=== PATIENT | female | born 1935 ===

== ENCOUNTER 2018-10-30 14:21 | Inpatient (IN) | payer MEDICARE, OTHER ==
[2018-10-30] MEDS ORDERED: Sodium Chloride 0.9% 1,000 ML IV STA (15:18)
[2018-10-30 16:13] LABS: BASO # 0.1 K/uL (0.0-0.2); BASO % 0.3 % (0.0-2.0); EOS # 0.1 K/uL (0.0-0.7); EOS % 0.4 % (0.0-4.0); HEMOGLOBIN 12.6 g/dL (12.0-16.0); LYMPH # 1.3 K/uL (1.0-4.3); LYMPH % 8.9 % (20.0-40.0); MEAN CELL VOLUME 88.2 fl (81.0-99.0); MEAN CORPUSCULAR HEMOGLOBIN 28.6 pg (27.0-31.0); MEAN CORPUSCULAR HGB CONC 32.5 g/dL (33.0-37.0); MEAN PLATELET VOLUME 8.8 fl (7.2-11.7); MONO # 0.6 K/uL (0.0-0.8); MONO % 4.1 % (0.0-10.0); NEUT # 12.7 K/uL (1.8-7.0); NEUT % 86.3 % (50.0-75.0); PLATELET COUNT 336 K/uL (130-400); RED CELL DISTRIBUTION WIDTH 13.8 % (11.5-14.5); WHITE BLOOD COUNT 14.8 K/uL (4.8-10.8)
[2018-10-30 16:28] LABS: ALBUMIN 4.3 g/dL (3.5-5.0); BLOOD UREA NITROGEN 26 mg/dl (7-17); CALCIUM 9.9 mg/dL (8.4-10.2); GFR NON-AFRICAN AMERICAN > 60
[2018-10-30 16:29] LABS: ALB/GLOB RATIO 1.2 (1.0-2.1); ALT/SGPT 27 U/L (9-52); AST/SGOT 32 U/L (14-36); LIPASE 177 U/L (23-300)
[2018-10-30 16:32] LABS: PROTHROMBIN TIME 11.9 Seconds (9.8-13.1)
[2018-10-30] MEDS ORDERED: Iohexol 300 100 ML IJ ONE (16:32)
[2018-10-30] MEDS ORDERED: Sodium Chloride 0.9% 50 ML IV ONE (16:32)
[2018-10-30 16:44] LABS: B-TYPE NATRIURETIC PEPTIDE 38.9 pg/ml (0-900)
[2018-10-30 17:17] LABS: SQUAMOUS EPITHIAL 5 /hpf (0-5); URINE BACTERIA RARE (<OCC); URINE BILIRUBIN NEGATIVE (NEGATIVE); URINE BLOOD LARGE (NEGATIVE); URINE CLARITY CLOUDY (Clear); URINE COLOR YELLOW (YELLOW); URINE GLUCOSE (UA) 150 mg/dL (NEGATIVE); URINE LEUKOCYTE ESTERASE SMALL Leu/uL (Negative); URINE PROTEIN 30 mg/dL (NEGATIVE); URINE UROBILINOGEN 0.2-1.0 mg/dL (0.2-1.0)
--- NOTE | 2018-10-30 17:17 | RAD ---
Date of service: 10/30/2018 HISTORY: Shortness of breath COMPARISON: 06/24/2018 FINDINGS: LUNGS: No active pulmonary disease. PLEURA: No significant pleural effusion identified, no pneumothorax apparent. CARDIOVASCULAR: No atherosclerotic calcification present Normal. OSSEOUS STRUCTURES: No significant abnormalities. VISUALIZED UPPER ABDOMEN: Normal. OTHER FINDINGS: None. IMPRESSION: No active disease. No significant interval change compared to the prior examination(s).
--- NOTE | 2018-10-30 17:29 | CT ---
Date of service: 10/30/2018 PROCEDURE: CT Abdomen and Pelvis with contrast HISTORY: RUQ pain, vomiting, hx gallstones COMPARISON: And pelvis CT with contrast 06/24/2018. TECHNIQUE: Following the intravenous administration of iodinated contrast material, a CT examination of the abdomen and pelvis was performed from the domes of the diaphragms to the symphysis pubis with reformatted datasets provided in axial, sagittal and coronal planes. Oral contrast was not administered as per referring physician request.Contrast dose: Omnipaque 300, 80 cc Radiation dose: Total exam DLP = 269.71 mGy-cm. This CT exam was performed using one or more of the following dose reduction techniques: Automated exposure control, adjustment of the mA and/or kV according to patient size, and/or use of iterative reconstruction technique. FINDINGS: LOWER THORAX: Limited dependent atelectasis identified in the right lower lobe with cardiomegaly reiterated. No pleural or pericardial effusion. Small hiatal hernia again evident. LIVER: Unremarkable. No gross lesion or ductal dilatation. GALLBLADDER AND BILE DUCTS: Gallbladder is similar in distension is previously shown, moderate, but with mural enhancement. No pericholecystic fluid collection. Lucent calculi are suggest fatty gallstones near the neck. Cholecystitis is not completely excluded. Clinically correlate further. PANCREAS: Pancreatic atrophy reiterated with pancreas otherwise unremarkable once again. SPLEEN: Unremarkable. ADRENALS: Unremarkable. No mass. KIDNEYS AND URETERS: Prominent right extrarenal pelvis with a small lucency seen the midpole right kidney laterally, too small to characterize. No obstructive uropathy bilaterally or significant perinephric reactive change. Occasional right-sided cortical infarcts reiterated. Two small lucencies are reiterated at the left kidney too small to characterize as well. VASCULATURE: Nonaneurysmal abdominal aortic calcific atherosclerotic changes are identified. BOWEL: Unremarkable. No obstruction. No gross mural thickening. APPENDIX: Appendix not identified. No CT evidence of appendicitis. PERITONEUM: Unremarkable. No free fluid. No free air. LYMPH NODES: Unremarkable. No enlarged lymph nodes. BLADDER: Unremarkable. REPRODUCTIVE: Lucency may reflect fluid in the central endometrial cavity in the interval. BONES: No acute fracture. OTHER FINDINGS: None. IMPRESSION: 1. Mural enhancing without thickening or pericholecystic fluid is appreciated which is nonspecific combination but could reflect potential cholecystitis. Cholelithiasis is seen in the lumen near the neck. Clinically correlate further. No biliary tree dilatation appreciated throughout. 2. No obstructive uropathy bilaterally. Prominent right extrarenal pelvis reiterated as well as right renal lucencies too small to characterize and cortical infarcts. Two small lucencies are reiterated at the left kidney too small to characterize as well.
[2018-10-30] MEDS ORDERED: Piperacillin/Tazobact 4.5 GM in Sodium Chloride 0.9% 100 ML IVPB STA (17:31)
--- NOTE | 2018-10-30 18:23 | CP.PCM.CON ---
History of Present Illness - History of Present Illness History of Present Illness: SURGERY CONSULT NOTE FOR DR. TROTTER Reason: r/o cholecystitis 83F presented to hospital after being sent to ED by PMD for symptoms of abdominal pain, nausea, vomiting and diarrhea. Patient currently denies abdominal pain, but states she does have right side rib pain. She states she is comfortable currently. Denies nausea, vomiting, fevers currently. Patient was recently admitted to [facility] for fall, and was diagnosed with right sided rib fractures on rib x-ray. PMH: DM, HTN, HLD, Dementia PSH: Appendectomy Social: Denies tobacco, alcohol, illicit drug Allergies: NKDA Past Patient History - Infectious Disease Hx of Infectious Diseases: None - Past Medical History & Family History Past Medical History?: Yes - Past Social History Smoking Status: Never Smoked - CARDIAC Hx Cardiac Disorders: Yes Hx Hypertension: Yes - PULMONARY Hx Respiratory Disorders: No - NEUROLOGICAL Hx Neurological Disorder: No - HEENT Hx HEENT Problems: No - RENAL Hx Chronic Kidney Disease: No - ENDOCRINE/METABOLIC Hx Endocrine Disorders: Yes Hx Diabetes Mellitus Type 2: Yes - HEMATOLOGICAL/ONCOLOGICAL Hx Blood Disorders: No - INTEGUMENTARY Hx Dermatological Problems: No - MUSCULOSKELETAL/RHEUMATOLOGICAL Hx Musculoskeletal Disorders: Yes Hx Falls: Yes - GASTROINTESTINAL Hx Gastrointestinal Disorders: Yes Hx Gastritis: Yes - GENITOURINARY/GYNECOLOGICAL Hx Genitourinary Disorders: No - PSYCHIATRIC Hx Psychophysiologic Disorder: No Hx Substance Use: No - SURGICAL HISTORY Hx Surgeries: Yes Hx Appendectomy: Yes (in [place]) - ANESTHESIA Hx Anesthesia: Yes Hx Anesthesia Reactions: No Hx Malignant Hyperthermia: No Meds Allergies/Adverse Reactions: Allergies Allergy/AdvReac Type Severity Reaction Status Date / Time No Known Allergies Allergy Verified 06/24/18 14:49 - Medications Medications: Current Medications Piperacillin Sod/Tazobactam (Sod 4.5 gm/ Sodium Chloride) 100 mls @ 100 mls/hr IVPB STAT STA; Protocol Stop: 10/30/18 18:30 Last Admin: 10/30/18 18:07 Dose: 100 mls/hr Physical Exam - Constitutional Appears: Non-toxic, No Acute Distress - Respiratory Exam Respiratory Exam: Clear to Auscultation Bilateral, NORMAL BREATHING PATTERN - Cardiovascular Exam Cardiovascular Exam: REGULAR RHYTHM, +S1, +S2 Additional comments: right rib tenderness on palpation - GI/Abdominal Exam GI & Abdominal Exam: Soft. absent: Distended, Firm, Guarding, Rebound, Rigid, Tenderness - Extremities Exam Extremities exam: Negative for: pedal edema, tenderness - Neurological Exam Neurological exam: Alert - Skin Skin Exam: Dry, Intact, Normal Color, Warm Results - Vital Signs Recent Vital Signs: Last Vital Signs Temp 96.0 F L 10/30/18 14:23 Pulse 83 10/30/18 14:23 Resp 16 10/30/18 14:23 BP 150/69 10/30/18 14:23 Pulse Ox 98 10/30/18 14:23 - Labs Result Diagrams: 10/30/18 16:06 10/30/18 16:07 Labs: Laboratory Results - last 24 hr 10/30/18 10/30/18 10/30/18 16:06 16:06 16:06 WBC 14.8 H RBC 4.40 Hgb 12.6 Hct 38.8 MCV 88.2 MCH 28.6 MCHC 32.5 L RDW 13.8 Plt Count 336 MPV 8.8 Neut % (Auto) 86.3 H Lymph % (Auto) 8.9 L [place] % (Auto) 4.1 Eos % (Auto) 0.4 Baso % (Auto) 0.3 Neut # (Auto) 12.7 H Lymph # (Auto) 1.3 [place] # (Auto) 0.6 Eos # (Auto) 0.1 Baso # (Auto) 0.1 PT 11.9 INR 1.0 APTT 27.0 Sodium Potassium Chloride Carbon Dioxide Anion Gap BUN Creatinine Est GFR ( Amer) Est GFR (Non-Af Amer) Random Glucose Calcium Phosphorus Magnesium Total Bilirubin AST ALT Alkaline Phosphatase Troponin I NT-Pro-B Natriuret Pep Total Protein Albumin Globulin Albumin/Globulin Ratio Lipase Urine Color Urine Clarity Urine pH Ur Specific [place] Urine Protein Urine Glucose (UA) Urine Ketones Urine Blood Urine Nitrate Urine Bilirubin Urine Urobilinogen Ur Leukocyte Esterase Urine RBC (Auto) Urine Microscopic WBC Ur Squamous Epith Cells Urine Bacteria Influenza Typ A,B (EIA) Negative for flu a/b 10/30/18 10/30/18 16:07 17:06 WBC RBC Hgb Hct MCV MCH MCHC RDW Plt Count MPV Neut % (Auto) Lymph % (Auto) [place] % (Auto) Eos % (Auto) Baso % (Auto) Neut # (Auto) Lymph # (Auto) [place] # (Auto) Eos # (Auto) Baso # (Auto) PT INR APTT Sodium 140 Potassium 3.9 Chloride 98 Carbon Dioxide 28 Anion Gap 18 BUN 26 H Creatinine 0.8 Est GFR ( Amer) > 60 Est GFR (Non-Af Amer) > 60 Random Glucose 226 H Calcium 9.9 Phosphorus 4.0 Magnesium 1.8 Total Bilirubin 0.4 AST 32 ALT 27 Alkaline Phosphatase 84 Troponin I < 0.0120 NT-Pro-B Natriuret Pep 38.9 Total Protein 7.7 Albumin 4.3 Globulin 3.4 Albumin/Globulin Ratio 1.2 Lipase 177 Urine Color Yellow Urine Clarity Cloudy Urine pH 8.0 Ur Specific [place] 1.021 Urine Protein 30 Urine Glucose (UA) 150 Urine Ketones 20 Urine Blood Large Urine Nitrate Negative Urine Bilirubin Negative Urine Urobilinogen 0.2-1.0 Ur Leukocyte Esterase Small Urine RBC (Auto) 97 H Urine Microscopic WBC 8 H Ur Squamous Epith Cells 5 Urine Bacteria Rare Influenza Typ A,B (EIA) Assessment & Plan - Assessment and Plan (Free Text) Assessment: 83F with resolved abdominal pain 2/2 enteritis. US shows gallstones, no signs of cholecystitis Plan: Advance diet as tolerated IV fluids Pain control Anti emetics Antibiotics Serial abdominal exams Further recs discuss with Dr. Armando Schuler, PGY3
--- NOTE | 2018-10-30 18:23 | ED PDOC ---
HPI: Abdomen Time Seen by Provider: 10/30/18 15:16 Chief Complaint (Nursing): GI Problem Chief Complaint (Provider): GI Problem History Per: Patient History/Exam Limitations: no limitations Onset/Duration Of Symptoms: Hrs (today morning) Current Symptoms Are (Timing): Still Present Location Of Pain/Discomfort: RUQ, LUQ Associated Symptoms: Vomiting, Diarrhea, Loss Of Appetite. denies: Fever Additional Complaint(s): 83 year old female with a past medical history of mild dementia, who presents to the emergency department after being sent from her PMD for upper abdominal pain, vomiting, and diarrhea, associated with generalized weakness and loss of appetite since today morning. Patient's history is significant for x3 days of admission at [facility] last week for a fall and upper rib fracture. Patient denies having any cough, fever, seizure, blood per rectum, hematemesis, or headache. History was limited due to patient's dementia, however was able to communicate pain. PMD: Vikas [place] Past Medical History Reviewed: Historical Data, Nursing Documentation, Vital Signs Vital Signs: Last Vital Signs Temp 96.0 F L 10/30/18 14:23 Pulse 83 10/30/18 14:23 Resp 16 10/30/18 14:23 BP 150/69 10/30/18 14:23 Pulse Ox 98 10/30/18 14:23 - Medical History PMH: Diabetes, Gastritis, HTN, Hypercholesterolemia Denies: Chronic Kidney Disease - Surgical History Surgical History: Appendectomy (in [place]), Hernia Repair - Family History Family History: States: Unknown Family Hx - Immunization History Hx Tetanus Toxoid Vaccination: No Hx Influenza Vaccination: No Hx Pneumococcal Vaccination: No - Home Medications Home Medications: Ambulatory Orders Medication Instructions Recorded Losartan [Cozaar] 50 mg PO DAILY 04/22/15 Atorvastatin [Lipitor] 10 mg PO DAILY 06/24/18 Albuterol HFA [Ventolin HFA 90 1 puff IH BID #1 inhaler 10/22/18 mcg/actuation (8 g)] Calcium Carbonate/Vitamin D3 1 tab PO BID 10/30/18 [Caltrate 600 Plus D3 Tablet] DiphenhydrAMINE [Benadryl] 25 mg PO HS 10/30/18 Donepezil [Aricept] 5 mg PO HS 10/30/18 Linagliptin/Metformin HCl 1 tab PO BID 10/30/18 [Jentadueto 2.5 mg-1000 mg Tab] Megestrol Acetate [Megace] 5 ml PO DAILY 10/30/18 Memantine [Namenda] 10 mg PO Q12 10/30/18 Temazepam [Restoril] 15 mg PO HS PRN 10/30/18 traMADol [Ultram] 50 mg PO Q6H PRN 10/30/18 - Allergies Allergies/Adverse Reactions: Allergies Allergy/AdvReac Type Severity Reaction Status Date / Time No Known Allergies Allergy Verified 06/24/18 14:49 Review of Systems ROS Statement: Except As Marked, All Systems Reviewed And Found Negative Constitutional: Negative for: Fever Respiratory: Negative for: Cough Gastrointestinal: Positive for: Vomiting, Abdominal Pain, Diarrhea. Negative for: Hematemesis, Other (blood per rectum) Neurological: Negative for: Weakness (generalized), Seizures, Headache Physical Exam - Reviewed Nursing Documentation Reviewed: Yes Vital Signs Reviewed: Yes - Physical Exam Appears: Positive for: No Acute Distress (elderly male with mild confusion) Head Exam: Positive for: ATRAUMATIC, NORMOCEPHALIC Eye Exam: Positive for: Scleral icterus, Other (well hydrated ) Cardiovascular/Chest: Positive for: Regular Rate, Rhythm. Negative for: Murmur Respiratory: Positive for: Normal Breath Sounds. Negative for: Respiratory Distress Gastrointestinal/Abdominal: Positive for: Tenderness (RUQ) Neurologic/Psych: Positive for: Alert, Other (at baseline). Negative for: Oriented - Laboratory Results Result Diagrams: 10/30/18 16:06 10/30/18 16:07 Lab Results: PT 11.9 Seconds (9.8-13.1) 10/30/18 16:06 INR 1.0 10/30/18 16:06 APTT 27.0 Seconds (25.6-37.1) 10/30/18 16:06 Troponin I < 0.0120 ng/mL (0.00-0.120) 10/30/18 16:07 NT-Pro-B Natriuret Pep 38.9 pg/ml (0-900) 10/30/18 16:07 Total Bilirubin 0.4 mg/dl (0.2-1.3) 10/30/18 16:07 AST 32 U/L (14-36) 10/30/18 16:07 ALT 27 U/L (9-52) 10/30/18 16:07 Alkaline Phosphatase 84 U/L (38-126) 10/30/18 16:07 Total Protein 7.7 G/DL (6.3-8.2) 10/30/18 16:07 Albumin 4.3 g/dL (3.5-5.0) 10/30/18 16:07 Globulin 3.4 gm/dL (2.2-3.9) 10/30/18 16:07 Albumin/Globulin Ratio 1.2 (1.0-2.1) 10/30/18 16:07 Lipase 177 U/L (23-300) 10/30/18 16:07 Urine Color Yellow (YELLOW) 10/30/18 17:06 Urine Clarity Cloudy (Clear) 10/30/18 17:06 Urine pH 8.0 (5.0-8.0) 10/30/18 17:06 Ur Specific [place] 1.021 (1.003-1.030) 10/30/18 17:06 Urine Protein 30 mg/dL (NEGATIVE) 10/30/18 17:06 Urine Glucose (UA) 150 mg/dL (NEGATIVE) 10/30/18 17:06 Urine Ketones 20 mg/dL (NEGATIVE) 10/30/18 17:06 Urine Blood Large (NEGATIVE) 10/30/18 17:06 Urine Nitrate Negative (NEGATIVE) 10/30/18 17:06 Urine Bilirubin Negative (NEGATIVE) 10/30/18 17:06 Urine Urobilinogen 0.2-1.0 mg/dL (0.2-1.0) 10/30/18 17:06 Ur Leukocyte Esterase Small [place]/uL (Negative) 10/30/18 17:06 Urine RBC (Auto) 97 /hpf (0-3) H 10/30/18 17:06 Urine Microscopic WBC 8 /hpf (0-5) H 10/30/18 17:06 Ur Squamous Epith Cells 5 /hpf (0-5) 10/30/18 17:06 Urine Bacteria Rare (<OCC) 10/30/18 17:06 - ECG O2 Sat by Pulse Oximetry: 98 (RA) Pulse Ox Interpretation: Normal Medical Decision Making Medical Decision Making: Time: 151 Plan: --EKG --CBC with differential --B-Type Natriuretic Peptide --CMP --Lipase --Magnesium --Phosphorous --Troponin I --PTT --PT --Urinalysis --Influenza A B --Sodium chloride 1,000 ml --Zosyn 4.5 gm IVPB --Glucose blood POC --abdomen RUQ US --Chest xray --CT abd & Pelvis with IV contrast only Blood work shows elevated white blood count and normal LFTs. Time: 1713 Chest xray FINDINGS: LUNGS: No active pulmonary disease. PLEURA: No significant pleural effusion identified, no pneumothorax apparent. CARDIOVASCULAR: No atherosclerotic calcification present Normal. OSSEOUS STRUCTURES: No significant abnormalities. VISUALIZED UPPER ABDOMEN: Normal. OTHER FINDINGS: None. IMPRESSION: No active disease. No significant interval change compared to the prior examination(s). Time: 1725 CT FINDINGS: LOWER THORAX: Limited dependent atelectasis identified in the right lower lobe with cardiomegaly reiterated. No pleural or pericardial effusion. Small hiatal hernia again evident. LIVER: Unremarkable. No gross lesion or ductal dilatation. GALLBLADDER AND BILE DUCTS: Gallbladder is similar in distension is previously shown, moderate, but with mural enhancement. No pericholecystic fluid collection. Lucent calculi are suggest fatty gallstones near the neck. Cholecystitis is not completely excluded. Clinically correlate further. PANCREAS: Pancreatic atrophy reiterated with pancreas otherwise unremarkable once again. SPLEEN: Unremarkable. ADRENALS: Unremarkable. No mass. KIDNEYS AND URETERS: Prominent right extrarenal pelvis with a small lucency seen the midpole right kidney laterally, too small to characterize. No obstructive uropathy bilaterally or significant perinephric reactive change. Occasional right-sided cortical infarcts reiterated. Two small lucencies are reiterated at the left kidney too small to characterize as well. VASCULATURE: Nonaneurysmal abdominal aortic calcific atherosclerotic changes are identified. BOWEL: Unremarkable. No obstruction. No gross mural thickening. APPENDIX: Appendix not identified. No CT evidence of appendicitis. PERITONEUM: Unremarkable. No free fluid. No free air. LYMPH NODES: Unremarkable. No enlarged lymph nodes. BLADDER: Unremarkable. REPRODUCTIVE: Lucency may reflect fluid in the central endometrial cavity in the interval. BONES: No acute fracture. OTHER FINDINGS: None. IMPRESSION: 1. Mural enhancing without thickening or pericholecystic fluid is appreciated which is nonspecific combination but could reflect potential cholecystitis. Cholelithiasis is seen in the lumen near the neck. Clinically correlate further. No biliary tree dilatation appreciated throughout. 2. No obstructive uropathy bilaterally. Prominent right extrarenal pelvis reiterated as well as right renal lucencies too small to characterize and cortical infarcts. Two small lucencies are reiterated at the left kidney too small to characterize as well. Time: 1736 Patient was admitted for surgical evaluation under Dr. Morel. Time: 1799 Discussed case with surgical instrument mechanic. Time: 1836 US FINDINGS: Examination limited by patient condition/difficulty with breath hold. LIVER: Measures 16.8 cm in length. Echogenic liver may be seen in setting of hepatic parenchymal disease or fatty infiltration. No focal hepatic mass identified. The main portal vein appears patent with normal directional flow. No intrahepatic bile duct dilatation. GALLBLADDER: Gallstones. No gallbladder wall thickening or pericholecystic edema. Negative sonographic Alexander's sign as assessed by the financial sales representative. COMMON BILE DUCT: Measures 4 mm. PANCREAS: Not well-visualized. RIGHT KIDNEY: Measures approximately 9.7 x 3.9 x 3.3 cm. No obstructing calculus or hydronephrosis identified. AORTA: Limited visualization appears grossly unremarkable. IVC: Limited visualization appears grossly unremarkable. OTHER FINDINGS: None . IMPRESSION: Limited study. Cholelithiasis. Echogenic liver may be seen in setting of hepatic parenchymal disease or fatty infiltration. Scribe Attestation: Documented by Gregorio Sanders, acting as a scribe for Zachary Jimenez DO. Provider Scribe Attestation: All medical record entries made by the Scribe were at my direction and personally dictated by me. I have reviewed the chart and agree that the record accurately reflects my personal performance of the history, physical exam, medical decision making, and the department course for this patient. I have also personally directed, reviewed, and agree with the discharge instructions and disposition.
[2018-10-30 18:28] LABS: ANISOCYTOSIS SLIGHT; BANDS 5 % (0-2); BASOPHIL 1 % (0-2); HYPOCHROMIC SLIGHT; LYMPHOCYTE 8 % (20-50); MONOCYTE 5 % (0-10); NEUTROPHIL 81 % (42-75); PLATELET ESTIMATE NORMAL (NORMAL); POIKILOCYTOSIS SLIGHT; TOTAL CELLS COUNTED 100
--- NOTE | 2018-10-30 18:40 | US ---
Date of service: 10/30/2018 HISTORY: RUQ abnormal CT COMPARISON: CT abdomen and pelvis with contrast performed 10/30/18 TECHNIQUE: Sonographic evaluation of the right upper quadrant of the abdomen. FINDINGS: Examination limited by patient condition/difficulty with breath hold. LIVER: Measures 16.8 cm in length. Echogenic liver may be seen in setting of hepatic parenchymal disease or fatty infiltration. No focal hepatic mass identified. The main portal vein appears patent with normal directional flow. No intrahepatic bile duct dilatation. GALLBLADDER: Gallstones. No gallbladder wall thickening or pericholecystic edema. Negative sonographic Alexander's sign as assessed by the coating machine helper. COMMON BILE DUCT: Measures 4 mm. PANCREAS: Not well-visualized. RIGHT KIDNEY: Measures approximately 9.7 x 3.9 x 3.3 cm. No obstructing calculus or hydronephrosis identified. AORTA: Limited visualization appears grossly unremarkable. IVC: Limited visualization appears grossly unremarkable. OTHER FINDINGS: None . IMPRESSION: Limited study. Cholelithiasis. Echogenic liver may be seen in setting of hepatic parenchymal disease or fatty infiltration.
[2018-10-30] MEDS: Lactated Ringer's 1,000 ML IV SCH (19:57)
[2018-10-30] MEDS ORDERED: Piperacillin/Tazobact 3.375 gm Inj IVPB ONE (22:32)
[2018-10-30] MEDS: Piperacillin/Tazobact 3.375 GM in Sodium Chloride 0.9% 100 ML IVPB SCH (22:36)
[2018-10-31] MEDS: Piperacillin/Tazobact 3.375 GM in Sodium Chloride 0.9% 100 ML IVPB SCH ×4 (03:21→21:54)
[2018-10-31 05:30] LABS: BASO # 0.1 K/uL (0.0-0.2); BASO % 0.7 % (0.0-2.0); EOS # 0.2 K/uL (0.0-0.7); HEMOGLOBIN 11.6 g/dL (12.0-16.0); LYMPH # 2.5 K/uL (1.0-4.3); LYMPH % 25.9 % (20.0-40.0); MEAN CELL VOLUME 89.4 fl (81.0-99.0); MEAN CORPUSCULAR HEMOGLOBIN 29.4 pg (27.0-31.0); MEAN CORPUSCULAR HGB CONC 32.8 g/dL (33.0-37.0); MEAN PLATELET VOLUME 8.7 fl (7.2-11.7); MONO # 0.6 K/uL (0.0-0.8); MONO % 5.9 % (0.0-10.0); NEUT # 6.4 K/uL (1.8-7.0); NEUT % 65.5 % (50.0-75.0); NRBC % 0.2 % (0.0-0.0); RBC 3.94 Mil/uL (3.80-5.20); RED CELL DISTRIBUTION WIDTH 13.7 % (11.5-14.5); WHITE BLOOD COUNT 9.8 K/uL (4.8-10.8)
[2018-10-31 06:06] LABS: ALB/GLOB RATIO 1.1 (1.0-2.1); ALBUMIN 3.6 g/dL (3.5-5.0); ALT/SGPT 27 U/L (9-52); AST/SGOT 21 U/L (14-36); BLOOD UREA NITROGEN 16 mg/dl (7-17); CALCIUM 8.8 mg/dL (8.4-10.2); GFR NON-AFRICAN AMERICAN > 60
[2018-10-31] MEDS ORDERED: Albuterol HFA 90 mcg/actuation (8 g) IH PRN (06:20)
--- NOTE | 2018-10-31 07:06 | CP.PCM.PN ---
Subjective - Date & Time of Evaluation Date of Evaluation: 10/31/18 Time of Evaluation: 07:04 - Subjective Subjective: SURGERY NOTE FOR DR. TROTTER 83F seen and examined at bedside. Patient resting comfortably, no pain medications needed overnight, per nurse patient has not had diarrhea overnight. No fevers. Objective - Vital Signs/Intake and Output Vital Signs (last 24 hours): Temp Pulse Resp BP Pulse Ox 98.9 F 96 H 18 123/83 96 10/31/18 06:08 10/31/18 06:08 10/31/18 06:08 10/31/18 06:08 10/31/18 06:08 - Medications Medications: Current Medications Acetaminophen (Tylenol 325mg Tab) 650 mg PO Q4 PRN PRN Reason: Fever >100.4 F Albuterol (Ventolin Hfa 90 Mcg/Actuation (8 G)) 1 puff IH RQ6 PRN PRN Reason: Shortness of Breath Atorvastatin Calcium (Lipitor) 10 mg PO DAILY MIKEY Diphenhydramine HCl (Benadryl) 25 mg PO HS MIKEY Donepezil HCl (Aricept) 5 mg PO HS MIKEY Lactated Ringer's (Lactated Ringer's) 1,000 mls @ 100 mls/hr IV .Q10H MIKEY Last Admin: 10/30/18 19:57 Dose: 100 mls/hr Piperacillin Sod/Tazobactam (Sod 3.375 gm/ Sodium Chloride) 100 mls @ 100 mls/hr IVPB Q6 MIKEY; Protocol Last Admin: 10/31/18 03:21 Dose: 100 mls/hr Losartan Potassium (Cozaar) 50 mg PO DAILY MIKEY Megestrol Acetate (Megace) 200 mg PO DAILY MIKEY Memantine (Namenda) 10 mg PO Q12 MIKEY Metformin HCl (Glucophage) 1,000 mg PO BID MIKEY Ondansetron HCl (Zofran Inj) 4 mg IVP Q6 PRN PRN Reason: Nausea/Vomiting Sitagliptin Phosphate (Januvia) 50 mg PO BID MIKEY Temazepam (Restoril) 15 mg PO HS PRN PRN Reason: Insomnia - Labs Labs: 10/31/18 04:35 10/31/18 04:35 PT 11.9 Seconds (9.8-13.1) 10/30/18 16:06 INR 1.0 10/30/18 16:06 APTT 27.0 Seconds (25.6-37.1) 10/30/18 16:06 - Constitutional Appears: Non-toxic, No Acute Distress - Respiratory Exam Respiratory Exam: Clear to Ausculation Bilateral, NORMAL BREATHING PATTERN - Cardiovascular Exam Cardiovascular Exam: REGULAR RHYTHM, +S1, +S2 - GI/Abdominal Exam GI & Abdominal Exam: Soft. absent: Distended, Firm, Guarding, Rigid, Rebound - Extremities Exam Extremities Exam: absent: Tenderness - Neurological Exam Neurological Exam: Alert - Skin Skin Exam: Dry, Intact, Normal Color, Warm Assessment and Plan - Assessment and Plan (Free Text) Assessment: 83F with resolving enteritis Plan: - advance diet as tolerated - continue IVF - Pain control - monitor for further diarrhea - Stool sample Further recs discuss with Dr. Armando Schuler, PGY3
[2018-10-31] MEDS ORDERED: Patient's Own Med (Linagliptin/Metformin Hcl [Jentadueto 2.5 Mg-1000 Mg Tab] 1 TAB) PO SCH (09:00)
[2018-10-31] MEDS: Megestrol Acetate 40 mg/ml Cup PO SCH (09:51)
[2018-10-31] MEDS: Lactated Ringer's 1,000 ML IV SCH (09:58)
--- NOTE | 2018-10-31 11:17 | CARD ---
APPROVED REPORT Date of service: 10/30/2018 EKG Measurement Heart [id number] <Conclusion> Normal sinus rhythm Left axis deviation Abnormal ECG
--- NOTE | 2018-11-01 05:03 | CP.PCM.HP ---
History of Present Illness - History of Present Illness History of Present Illness: CC: abdominal PAin History of Present Illness: A 83F presented to hospital after being sent to ED by PMD for symptoms of abdominal pain, nausea, vomiting and diarrhea. Patient currently denies abdominal pain, but states she does have right side rib pain. She states she is comfortable currently. Denies nausea, vomiting, fevers currently. Patient was recently admitted to [facility] for fall, and was diagnosed with right sided rib fractures on rib x-ray. Past Patient History - Infectious Disease Hx of Infectious Diseases: None - Past Medical History & Family History Past Medical History?: Yes - Past Social History Smoking Status: Never Smoked - CARDIAC Hx Cardiac Disorders: Yes Hx Hypertension: Yes - PULMONARY Hx Respiratory Disorders: No - NEUROLOGICAL Hx Neurological Disorder: No - HEENT Hx HEENT Problems: No - RENAL Hx Chronic Kidney Disease: No - ENDOCRINE/METABOLIC Hx Endocrine Disorders: Yes Hx Diabetes Mellitus Type 2: Yes - HEMATOLOGICAL/ONCOLOGICAL Hx Blood Disorders: No - INTEGUMENTARY Hx Dermatological Problems: No - MUSCULOSKELETAL/RHEUMATOLOGICAL Hx Musculoskeletal Disorders: Yes Hx Falls: Yes - GASTROINTESTINAL Hx Gastrointestinal Disorders: Yes Hx Gastritis: Yes - GENITOURINARY/GYNECOLOGICAL Hx Genitourinary Disorders: No - PSYCHIATRIC Hx Psychophysiologic Disorder: No Hx Substance Use: No - SURGICAL HISTORY Hx Surgeries: Yes Hx Appendectomy: Yes (in [place]) - ANESTHESIA Hx Anesthesia: Yes Hx Anesthesia Reactions: No Hx Malignant Hyperthermia: No Meds Allergies/Adverse Reactions: Allergies Allergy/AdvReac Type Severity Reaction Status Date / Time No Known Allergies Allergy Verified 06/24/18 14:49 Results - Vital Signs Recent Vital Signs: Last Vital Signs Temp 97.8 F 11/01/18 01:27 Pulse 73 11/01/18 01:27 Resp 18 11/01/18 01:27 BP 133/67 11/01/18 01:27 Pulse Ox 96 11/01/18 01:27 - Labs Result Diagrams: 10/31/18 04:35 10/31/18 04:35 Labs: Laboratory Results - last 24 hr 10/30/18 10/31/18 10/31/18 15:44 04:35 04:35 WBC 9.8 RBC 3.94 Hgb 11.6 L Hct 35.2 MCV 89.4 MCH 29.4 MCHC 32.8 L RDW 13.7 Plt Count 338 MPV 8.7 Neut % (Auto) 65.5 Lymph % (Auto) 25.9 [place] % (Auto) 5.9 Eos % (Auto) 2.0 Baso % (Auto) 0.7 Neut # (Auto) 6.4 Lymph # (Auto) 2.5 [place] # (Auto) 0.6 Eos # (Auto) 0.2 Baso # (Auto) 0.1 APTT Sodium 139 Potassium 4.0 Chloride 105 Carbon Dioxide 24 Anion Gap 14 BUN 16 Creatinine 0.8 Est GFR ( Amer) > 60 Est GFR (Non-Af Amer) > 60 POC Glucose (mg/dL) 217 H Random Glucose 97 Calcium 8.8 Total Bilirubin 0.5 AST 21 ALT 27 Alkaline Phosphatase 73 Total Protein 6.8 Albumin 3.6 Globulin 3.2 Albumin/Globulin Ratio 1.1 10/31/18 10/31/18 10/31/18 05:18 08:08 10:59 WBC RBC Hgb Hct MCV MCH MCHC RDW Plt Count MPV Neut % (Auto) Lymph % (Auto) [place] % (Auto) Eos % (Auto) Baso % (Auto) Neut # (Auto) Lymph # (Auto) [place] # (Auto) Eos # (Auto) Baso # (Auto) APTT 27.7 Sodium Potassium Chloride Carbon Dioxide Anion Gap BUN Creatinine Est GFR ( Amer) Est GFR (Non-Af Amer) POC Glucose (mg/dL) 90 237 H Random Glucose Calcium Total Bilirubin AST ALT Alkaline Phosphatase Total Protein Albumin Globulin Albumin/Globulin Ratio 10/31/18 10/31/18 16:30 22:23 WBC RBC Hgb Hct MCV MCH MCHC RDW Plt Count MPV Neut % (Auto) Lymph % (Auto) [place] % (Auto) Eos % (Auto) Baso % (Auto) Neut # (Auto) Lymph # (Auto) [place] # (Auto) Eos # (Auto) Baso # (Auto) APTT Sodium Potassium Chloride Carbon Dioxide Anion Gap BUN Creatinine Est GFR ( Amer) Est GFR (Non-Af Amer) POC Glucose (mg/dL) 117 H 122 H Random Glucose Calcium Total Bilirubin AST ALT Alkaline Phosphatase Total Protein Albumin Globulin Albumin/Globulin Ratio Assessment & Plan (1) Rash Status: Acute (2) DM2 (diabetes mellitus, type 2) Status: Chronic (3) HTN (hypertension) Status: Chronic (4) Abdominal pain Status: Resolved (5) Urolithiasis Status: Acute (6) Acute cholecystitis Status: Acute
--- NOTE | 2018-11-01 08:52 | CP.PCM.PN ---
Subjective - Date & Time of Evaluation Date of Evaluation: 11/01/18 Time of Evaluation: 08:50 - Subjective Subjective: SURGERY NOTE FOR DR. TROTTER 83F seen and examined at bedside. Patient denies abdominal pain. Complains of right rib pain. Denies nausea, vomiting, fevers or chills. Objective - Vital Signs/Intake and Output Vital Signs (last 24 hours): Temp Pulse Resp BP Pulse Ox 99.7 F H 71 20 131/66 96 11/01/18 08:38 11/01/18 08:38 11/01/18 08:38 11/01/18 08:38 11/01/18 08:38 - Medications Medications: Current Medications Acetaminophen (Tylenol 325mg Tab) 650 mg PO Q4 PRN PRN Reason: Fever >100.4 F Albuterol (Ventolin Hfa 90 Mcg/Actuation (8 G)) 1 puff IH RQ6 PRN PRN Reason: Shortness of Breath Atorvastatin Calcium (Lipitor) 10 mg PO DAILY [facility] Last Admin: 10/31/18 09:50 Dose: 10 mg Diphenhydramine HCl (Benadryl) 25 mg PO HS [facility] Last Admin: 10/31/18 21:54 Dose: 25 mg Donepezil HCl (Aricept) 5 mg PO HS [facility] Last Admin: 10/31/18 21:54 Dose: 5 mg Lactated Ringer's (Lactated Ringer's) 1,000 mls @ 100 mls/hr IV .Q10H [facility] Last Admin: 10/31/18 09:58 Dose: 100 mls/hr Losartan Potassium (Cozaar) 50 mg PO DAILY [facility] Last Admin: 10/31/18 09:49 Dose: 50 mg Megestrol Acetate (Megace) 200 mg PO DAILY [facility] Last Admin: 10/31/18 09:51 Dose: 200 mg Memantine (Namenda) 10 mg PO Q12 [facility] Last Admin: 10/31/18 21:54 Dose: 10 mg Metformin HCl (Glucophage) 1,000 mg PO BID [facility] Last Admin: 10/31/18 16:48 Dose: 1,000 mg Ondansetron HCl (Zofran Inj) 4 mg IVP Q6 PRN PRN Reason: Nausea/Vomiting Last Admin: 10/31/18 18:36 Dose: 4 mg Sitagliptin Phosphate (Januvia) 50 mg PO BID [facility] Last Admin: 10/31/18 16:49 Dose: 50 mg Temazepam (Restoril) 15 mg PO HS PRN PRN Reason: Insomnia Last Admin: 10/31/18 22:01 Dose: 15 mg - Labs Labs: 10/31/18 04:35 10/31/18 04:35 PT 11.9 Seconds (9.8-13.1) 10/30/18 16:06 INR 1.0 10/30/18 16:06 APTT 27.7 Seconds (25.6-37.1) 10/31/18 08:08 - Constitutional Appears: Non-toxic, No Acute Distress - Respiratory Exam Respiratory Exam: Clear to Ausculation Bilateral, NORMAL BREATHING PATTERN - Cardiovascular Exam Cardiovascular Exam: REGULAR RHYTHM, +S1, +S2 - GI/Abdominal Exam GI & Abdominal Exam: Tenderness. absent: Distended, Firm, Guarding, Rigid, Rebo und - Extremities Exam Extremities Exam: absent: Pedal Edema, Tenderness - Neurological Exam Neurological Exam: Awake Assessment and Plan - Assessment and Plan (Free Text) Assessment: 83F with resolved enteritis Plan: - Advance diet - monitor for diarrhea - f/u c-diff stool culture Further recs discuss with Dr. Armando Schuler, PGY3
[2018-11-01] MEDS: Megestrol Acetate 40 mg/ml Cup PO SCH (09:38)
[2018-11-01] MEDS: Lactated Ringer's 1,000 ML IV SCH ×2 (12:40→21:10)
[2018-11-02 00:39] VITALS: O2SAT 96
[2018-11-02 08:47] VITALS: RESP 20; TEMP 98.5
[2018-11-02] MEDS: Megestrol Acetate 40 mg/ml Cup PO SCH (09:18)
[2018-11-02] MEDS: Lactated Ringer's 1,000 ML IV SCH (09:21)
[2018-11-02 09:22] VITALS: BP 116/65; PULSE 73
--- NOTE | 2018-11-02 12:59 | CP.PCM.PCO ---
Assessment/Plan - Assessment and Plan (Free Text) Assessment: Patient seen and examined today at bedside. Working with physical therapy. Denies chest pain shortness of breath nausea vomiting or diarrhea. As per RN, patient had one normal BM today. Tolerating meal well. Discussed with patient, sister and NOK in chart about subacute care. They are not interested in [facility] at the moment, the would like to continue with [facility] and home visting Nurse and Physical therapy. Discussed with Dr Morel who is in agreement with this plan. DC home today. CM for home transportation.
--- NOTE | 2018-11-02 23:43 | CP.PCM.PN ---
Subjective - Date & Time of Evaluation Date of Evaluation: 11/01/18 Time of Evaluation: 17:00 Objective - Vital Signs/Intake and Output Vital Signs (last 24 hours): Temp Pulse Resp BP Pulse Ox 98.5 F 73 20 116/65 96 11/02/18 08:47 11/02/18 09:20 11/02/18 08:47 11/02/18 09:20 11/02/18 08:47 - Labs Labs: 10/31/18 04:35 10/31/18 04:35 PT 11.9 Seconds (9.8-13.1) 10/30/18 16:06 INR 1.0 10/30/18 16:06 APTT 27.7 Seconds (25.6-37.1) 10/31/18 08:08
--- NOTE | 2018-11-02 23:44 | CP.PCM.DIS ---
Provider - Provider Date of Admission: 10/30/18 17:37 Attending physician: Mirta Morel MD Consults: 10/31/18 06:26 Surgery [General Surgery Consult] Routine Comment: Consulting Provider: Alan Roberts Consulting Physician: Alan Roberts Reason for Consult: Surgery 10/31/18 06:37 General Surgery Consult Routine Comment: Consulting Provider: Alan Roberts Consulting Physician: Alan Roberts Reason for Consult: surgery Time Spent in preparation of Discharge (in minutes): 25 Diagnosis - Discharge Diagnosis (1) Acute cholecystitis Status: Acute (2) Urolithiasis Status: Acute (3) DM2 (diabetes mellitus, type 2) Status: Chronic (4) HTN (hypertension) Status: Chronic (5) History of dementia Status: Chronic (6) Abdominal pain Status: Resolved Hospital Course - Lab Results Lab Results: Most Recent Lab Values WBC 9.8 K/uL (4.8-10.8) 10/31/18 04:35 RBC 3.94 Mil/uL (3.80-5.20) 10/31/18 04:35 Hgb 11.6 g/dL (12.0-16.0) L 10/31/18 04:35 Hct 35.2 % (34.0-47.0) 10/31/18 04:35 MCV 89.4 fl (81.0-99.0) 10/31/18 04:35 MCH 29.4 pg (27.0-31.0) 10/31/18 04:35 MCHC 32.8 g/dL (33.0-37.0) L 10/31/18 04:35 RDW 13.7 % (11.5-14.5) 10/31/18 04:35 Plt Count 338 K/uL (130-400) 10/31/18 04:35 MPV 8.7 fl (7.2-11.7) 10/31/18 04:35 Neut % (Auto) 65.5 % (50.0-75.0) 10/31/18 04:35 Lymph % (Auto) 25.9 % (20.0-40.0) 10/31/18 04:35 [place] % (Auto) 5.9 % (0.0-10.0) 10/31/18 04:35 Eos % (Auto) 2.0 % (0.0-4.0) 10/31/18 04:35 Baso % (Auto) 0.7 % (0.0-2.0) 10/31/18 04:35 Neut # (Auto) 6.4 K/uL (1.8-7.0) 10/31/18 04:35 Lymph # (Auto) 2.5 K/uL (1.0-4.3) 10/31/18 04:35 [place] # (Auto) 0.6 K/uL (0.0-0.8) 10/31/18 04:35 Eos # (Auto) 0.2 K/uL (0.0-0.7) 10/31/18 04:35 Baso # (Auto) 0.1 K/uL (0.0-0.2) 10/31/18 04:35 Neutrophils % (Manual) 81 % (42-75) H 10/30/18 16:06 Band Neutrophils % 5 % (0-2) H 10/30/18 16:06 Lymphocytes % (Manual) 8 % (20-50) L 10/30/18 16:06 Monocytes % (Manual) 5 % (0-10) 10/30/18 16:06 Basophils % (Manual) 1 % (0-2) 10/30/18 16:06 Platelet Estimate Normal (NORMAL) 10/30/18 16:06 Hypochromasia (manual) Slight 10/30/18 16:06 Poikilocytosis (manual Slight 10/30/18 16:06 Anisocytosis (manual) Slight 10/30/18 16:06 PT 11.9 Seconds (9.8-13.1) 10/30/18 16:06 INR 1.0 10/30/18 16:06 APTT 27.7 Seconds (25.6-37.1) 10/31/18 08:08 Sodium 139 mmol/l (132-148) 10/31/18 04:35 Potassium 4.0 MMOL/L (3.6-5.0) 10/31/18 04:35 Chloride 105 mmol/L (98-107) 10/31/18 04:35 Carbon Dioxide 24 mmol/L (22-30) 10/31/18 04:35 Anion Gap 14 (10-20) 10/31/18 04:35 BUN 16 mg/dl (7-17) 10/31/18 04:35 Creatinine 0.8 mg/dl (0.7-1.2) 10/31/18 04:35 Est GFR ( Amer) > 60 10/31/18 04:35 Est GFR (Non-Af Amer) > 60 10/31/18 04:35 POC Glucose (mg/dL) 256 mg/dL (65-110) H 11/02/18 11:14 Random Glucose 97 mg/dL (65-105) 10/31/18 04:35 Calcium 8.8 mg/dL (8.4-10.2) 10/31/18 04:35 Phosphorus 4.0 mg/dl (2.5-4.5) 10/30/18 16:07 Magnesium 1.8 MG/DL (1.6-2.3) 10/30/18 16:07 Total Bilirubin 0.5 mg/dl (0.2-1.3) 10/31/18 04:35 AST 21 U/L (14-36) 10/31/18 04:35 ALT 27 U/L (9-52) 10/31/18 04:35 Alkaline Phosphatase 73 U/L (38-126) 10/31/18 04:35 Troponin I < 0.0120 ng/mL (0.00-0.120) 10/30/18 16:07 NT-Pro-B Natriuret Pep 38.9 pg/ml (0-900) 10/30/18 16:07 Total Protein 6.8 G/DL (6.3-8.2) 10/31/18 04:35 Albumin 3.6 g/dL (3.5-5.0) 10/31/18 04:35 Globulin 3.2 gm/dL (2.2-3.9) 10/31/18 04:35 Albumin/Globulin Ratio 1.1 (1.0-2.1) 10/31/18 04:35 Lipase 177 U/L (23-300) 10/30/18 16:07 Urine Color Yellow (YELLOW) 10/30/18 17:06 Urine Clarity Cloudy (Clear) 10/30/18 17:06 Urine pH 8.0 (5.0-8.0) 10/30/18 17:06 Ur Specific [place] 1.021 (1.003-1.030) 10/30/18 17:06 Urine Protein 30 mg/dL (NEGATIVE) 10/30/18 17:06 Urine Glucose (UA) 150 mg/dL (NEGATIVE) 10/30/18 17:06 Urine Ketones 20 mg/dL (NEGATIVE) 10/30/18 17:06 Urine Blood Large (NEGATIVE) 10/30/18 17:06 Urine Nitrate Negative (NEGATIVE) 10/30/18 17:06 Urine Bilirubin Negative (NEGATIVE) 10/30/18 17:06 Urine Urobilinogen 0.2-1.0 mg/dL (0.2-1.0) 10/30/18 17:06 Ur Leukocyte Esterase Small [place]/uL (Negative) 10/30/18 17:06 Urine RBC (Auto) 97 /hpf (0-3) H 10/30/18 17:06 Urine Microscopic WBC 8 /hpf (0-5) H 10/30/18 17:06 Ur Squamous Epith Cells 5 /hpf (0-5) 10/30/18 17:06 Urine Bacteria Rare (<OCC) 10/30/18 17:06 C. difficile Ag & Toxin Positive antigen (NEGATIVE) 10/31/18 16:36 Influenza Typ A,B (EIA) Negative for flu a/b (NEGATIVE) 10/30/18 16:06 Discharge Exam - Head Exam Head Exam: ATRAUMATIC, NORMOCEPHALIC Discharge Plan - Follow Up Plan Condition: STABLE Disposition: HOME/ ROUTINE Instructions: Gallstones (DC) Additional Instructions: follow up with primar doctor in 1 week Referrals: Mirta Morel MD [Staff Provider] - Alan Roberts MD [Staff Provider] -
== END 2018-11-02 15:00 | disposition home or self-care (01) | DRG 445 ==
LOC: H.ER 14:21 → H.ERHOLD 17:37 → H.TEL 23:15
PROVIDERS: ADMIT Internal Medicine; ATTEND Internal Medicine
DX: K80.00 Calculus of gallbladder with acute cholecystitis without obstruction (principal); J98.11 Atelectasis; K52.9 Noninfective gastroenteritis and colitis, unspecified; E11.9 Type 2 diabetes mellitus without complications; E78.00 Pure hypercholesterolemia, unspecified; E78.5 Hyperlipidemia, unspecified; F03.90 Unspecified dementia, unspecified severity, without behavioral disturbance, psychotic disturbance, mood disturbance, and anxiety; I10 Essential (primary) hypertension; I51.7 Cardiomegaly; K44.9 Diaphragmatic hernia without obstruction or gangrene; K86.89 Other specified diseases of pancreas; N20.9 Urinary calculus, unspecified; Z90.49 Acquired absence of other specified parts of digestive tract; K29.70 Gastritis, unspecified, without bleeding; S22.41XD Multiple fractures of ribs, right side, subsequent encounter for fracture with routine healing; W19.XXXD Unspecified fall, subsequent encounter; Z79.899 Other long term (current) drug therapy

== ENCOUNTER 2018-11-15 17:08 | Inpatient (IN) | payer MEDICARE, OTHER ==
[2018-11-15] MEDS ORDERED: Sodium Chloride 0.9% 500 ML IV STA (17:50)
--- NOTE | 2018-11-15 18:50 | ED PDOC ---
Hyperglycemia/Hypoglycemia Time Seen by Provider: 11/15/18 17:18 Chief Complaint (Nursing): High Blood Sugar Chief Complaint (Provider): High blood sugar History Per: Patient History/Exam Limitations: clinical condition : The patient does not have any of the infectious symptoms listed except for those marked. Additional Complaint(s): 83 year old female, with a past medical history of diabetes, hypertension, and dementia, was sent to the ED because the homemaker found she had very elevated glucose levels. Patient complains of feeling weak and thirsty. History may be unreliable due to dementia and homemaker not in ER to give any history. It is unknown how long symptoms have been going on. Patient was recently admitted to the hospital for enteritis. PMD: Dr. Morel Past Medical History Reviewed: Historical Data, Nursing Documentation, Vital Signs Vital Signs: Last Vital Signs Temp 97.9 F 11/15/18 17:12 Pulse 100 H 11/15/18 17:12 Resp 18 11/15/18 17:12 BP 130/90 11/15/18 17:12 Pulse Ox 99 11/15/18 17:12 - Medical History PMH: Diabetes, Gastritis, HTN, Hypercholesterolemia Denies: Chronic Kidney Disease - Surgical History Surgical History: Appendectomy (in [place]), Hernia Repair - Family History Family History: States: Unknown Family Hx - Social History Current smoker - smoking cessation education provided: No Alcohol: None Drugs: Denies - Immunization History Hx Tetanus Toxoid Vaccination: No Hx Influenza Vaccination: No Hx Pneumococcal Vaccination: No - Home Medications Home Medications: Ambulatory Orders Medication Instructions Recorded RX: Calcium Carbonate/Vitamin D3 1 tab PO BID 10/30/18 [Caltrate 600 Plus D3 Tablet] RX: DiphenhydrAMINE [Benadryl] 25 mg PO HS 10/30/18 RX: Donepezil [Aricept] 5 mg PO HS 10/30/18 RX: Linagliptin/Metformin HCl 1 tab PO BID 10/30/18 [Jentadueto 2.5 mg-1000 mg Tab] RX: Megestrol Acetate [Megace] 5 ml PO DAILY 10/30/18 RX: Memantine [Namenda] 10 mg PO Q12 10/30/18 RX: Temazepam [Restoril] 15 mg PO HS PRN 10/30/18 RX: traMADol [Ultram] 50 mg PO Q6H PRN 10/30/18 - Allergies Allergies/Adverse Reactions: Allergies Allergy/AdvReac Type Severity Reaction Status Date / Time No Known Allergies Allergy Verified 11/15/18 21:19 Review of Systems ROS Statement: Except As Marked, All Systems Reviewed And Found Negative (as per HPI otherwise negative) ENT: Positive for: Other (Thirsty) Neurological: Positive for: Weakness Physical Exam - Reviewed Nursing Documentation Reviewed: Yes Vital Signs Reviewed: Yes - Physical Exam Appears: Positive for: No Acute Distress Head Exam: Positive for: ATRAUMATIC, NORMOCEPHALIC Skin: Positive for: Warm, Dry Eye Exam: Positive for: EOMI, PERRL ENT: Positive for: Other (dry mucous membranes) Neck: Positive for: Painless ROM, Supple Cardiovascular/Chest: Positive for: Regular Rate, Rhythm. Negative for: Murmur Respiratory: Positive for: Normal Breath Sounds. Negative for: Wheezing Gastrointestinal/Abdominal: Positive for: Normal Exam, Soft. Negative for: Tenderness, Mass, Guarding, Rebound Back: Positive for: Normal Inspection. Negative for: Muscle Spasm Extremity: Positive for: Swelling (trace bilateral lower leg edema with some healing abrasions to the anterior tibia) Lymphatic: Negative for: Adenopathy Neurologic/Psych: Positive for: Alert. Negative for: Motor/Sensory Deficits - Laboratory Results Result Diagrams: 11/16/18 04:30 11/16/18 04:30 - ECG O2 Sat by Pulse Oximetry: 99 (RA) Pulse Ox Interpretation: Normal Medical Decision Making Medical Decision Making: Initial Impression: Hyperglycemia Differential includes but not limited to DKA, electrolyte abnormality, dehydration, medication, noncompliance, and renal insufficiency Initial Plan: --Type and screen stat --VBG stat --ECG --CMP --Magnesium stat --Phosphorous stat --Troponin stat --CBC --PTT --Prothrombin time --Blood culture --Urine culture --Influenza A B stat --Urinalysis Labs demonstrate marked hypophosphatemia IV repletion ordered KISHORE Morel for hospitalization. Scribe Attestation: Documented by Varinder Cartagena acting as a scribe for Tashia Ford MD. Provider Scribe Attestation: All medical record entries made by the Scribe were at my direction and personal ly dictated by me. I have reviewed the chart and agree that the record accurately reflects my personal performance of the history, physical exam, medical decision making, and the department course for this patient. I have also personally directed, reviewed, and agree with the discharge instructions and disposition. Disposition - Clinical Impression Clinical Impression: Hypophosphatemia, Hyperglycemia Counseled Patient/Family Regarding: Studies Performed, Diagnosis - Disposition Disposition Time: 20:00 Condition: GUARDED - Pt Status Changed To: Hospital Disposition Of: Inpatient - Admit Certification Admit to Inpatient:: After my assessment, the patient will require hospitalization for at least two midnights. This is because of the severity of symptoms shown, intensity of services needed, and/or the medical risk in this patient being treated as an outpatient. - POA Present On Arrival: Poor Glycemic Control
[2018-11-15 18:59] LABS: BASO # 0.1 K/uL (0.0-0.2); BASO % 0.7 % (0.0-2.0); EOS # 0.2 K/uL (0.0-0.7); EOS % 2.3 % (0.0-4.0); HEMOGLOBIN 12.6 g/dL (12.0-16.0); LYMPH # 2.8 K/uL (1.0-4.3); LYMPH % 29.9 % (20.0-40.0); MEAN CELL VOLUME 87.4 fl (81.0-99.0); MEAN CORPUSCULAR HEMOGLOBIN 28.5 pg (27.0-31.0); MEAN CORPUSCULAR HGB CONC 32.6 g/dL (33.0-37.0); MEAN PLATELET VOLUME 9.2 fl (7.2-11.7); MONO # 0.6 K/uL (0.0-0.8); MONO % 6.8 % (0.0-10.0); NEUT # 5.6 K/uL (1.8-7.0); NEUT % 60.3 % (50.0-75.0); NRBC % 0.1 % (0.0-0.0); RBC 4.44 Mil/uL (3.80-5.20); WHITE BLOOD COUNT 9.3 K/uL (4.8-10.8)
[2018-11-15 19:08] LABS: INR 0.9; PROTHROMBIN TIME 10.1 Seconds (9.8-13.1)
[2018-11-15 19:40] LABS: ALB/GLOB RATIO 1.3 (1.0-2.1); ALBUMIN 4.3 g/dL (3.5-5.0); ALT/SGPT 18 U/L (9-52); AST/SGOT 28 U/L (14-36); BLOOD UREA NITROGEN 29 mg/dl (7-17); CALCIUM 10.5 mg/dL (8.4-10.2); GFR NON-AFRICAN AMERICAN > 60
[2018-11-15 19:41] LABS: VENOUS BLOOD GAS BASE EXCESS 0.5 mmol/L (0.0-2.0); VENOUS BLOOD GAS PCO2 44 mmHg (40-60); VENOUS BLOOD GAS PO2 26 mm/Hg (30-55); VENOUS BLOOD PH 7.38 (7.32-7.43)
[2018-11-15] MEDS ORDERED: Potassium Phosphate 30 MMOLE in Sodium Chloride 0.9% 250 ML IV ONE (19:46)
[2018-11-15] MEDS ORDERED: Sodium Chloride 0.9% 1,000 ML IV STA (21:14)
[2018-11-16] MEDS: Sodium Chloride 0.9% 1,000 ML IV SCH ×3 (00:20→20:30)
[2018-11-16 05:48] LABS: HEMOGLOBIN 11.1 g/dL (12.0-16.0); MEAN CELL VOLUME 87.2 fl (81.0-99.0); MEAN CORPUSCULAR HEMOGLOBIN 29.1 pg (27.0-31.0); MEAN CORPUSCULAR HGB CONC 33.3 g/dL (33.0-37.0); RBC 3.8 Mil/uL (3.80-5.20); RED CELL DISTRIBUTION WIDTH 14.5 % (11.5-14.5); WHITE BLOOD COUNT 9.1 K/uL (4.8-10.8)
[2018-11-16 05:58] LABS: ALB/GLOB RATIO 1.2 (1.0-2.1); ALBUMIN 3.3 g/dL (3.5-5.0); ALT/SGPT 26 U/L (9-52); AST/SGOT 21 U/L (14-36); BLOOD UREA NITROGEN 18 mg/dl (7-17); CALCIUM 8.8 mg/dL (8.4-10.2); GFR NON-AFRICAN AMERICAN > 60
[2018-11-16] MEDS: Calcium-Vit D 500 mg-200 Units Tab UD PO SCH ×2 (08:40→16:31)
[2018-11-16] MEDS: Megestrol Acetate 40 mg/ml Cup PO SCH (08:40)
[2018-11-16] MEDS ORDERED: Patient's Own Med (Calcium Carbonate/Vitamin D3 [Caltrate 600 Plus D3 Tablet] 1 TAB) PO SCH (09:00)
--- NOTE | 2018-11-16 10:14 | CARD ---
APPROVED REPORT Date of service: 11/15/2018 EKG Measurement Heart [id number] ID [id number] <Conclusion> Normal sinus rhythm Left anterior fascicular block Abnormal ECG
[2018-11-16] MEDS: Insulin Lispro (humaLOG) 100 Units/ml Inj SC SCH ×3 (11:23→22:00)
[2018-11-17] MEDS: Calcium-Vit D 500 mg-200 Units Tab UD PO SCH ×2 (09:01→16:51)
[2018-11-17] MEDS: Megestrol Acetate 40 mg/ml Cup PO SCH (09:02)
[2018-11-17] MEDS: Insulin Lispro (humaLOG) 100 Units/ml Inj SC SCH ×4 (09:03→22:00)
--- NOTE | 2018-11-17 22:38 | CP.PCM.HP ---
Past Patient History - Infectious Disease Hx of Infectious Diseases: None - Past Medical History & Family History Past Medical History?: Yes - Past Social History Smoking Status: Never Smoked - CARDIAC Hx Hypercholesterolemia: Yes Hx Hypertension: Yes - PULMONARY Hx Respiratory Disorders: No - NEUROLOGICAL Hx Neurological Disorder: Yes - HEENT Hx HEENT Problems: No - RENAL Hx Chronic Kidney Disease: No - ENDOCRINE/METABOLIC Hx Endocrine Disorders: Yes - HEMATOLOGICAL/ONCOLOGICAL Hx Blood Disorders: No - INTEGUMENTARY Hx Dermatological Problems: No - MUSCULOSKELETAL/RHEUMATOLOGICAL Hx Musculoskeletal Disorders: Yes Hx Falls: Yes - GASTROINTESTINAL Hx Gastritis: Yes - GENITOURINARY/GYNECOLOGICAL Hx Genitourinary Disorders: No - PSYCHIATRIC Hx Psychophysiologic Disorder: No Hx Substance Use: No - SURGICAL HISTORY Hx Appendectomy: Yes (in [place]) - ANESTHESIA Hx Anesthesia: Yes Hx Anesthesia Reactions: No Hx Malignant Hyperthermia: No Meds Allergies/Adverse Reactions: Allergies Allergy/AdvReac Type Severity Reaction Status Date / Time No Known Allergies Allergy Verified 11/15/18 21:19 Results - Vital Signs Recent Vital Signs: Last Vital Signs Temp 98.8 F 11/17/18 19:30 Pulse 80 11/17/18 20:43 Resp 16 11/17/18 19:30 BP 122/70 11/17/18 19:30 Pulse Ox 95 11/17/18 19:30 - Labs Result Diagrams: 11/16/18 04:30 11/16/18 04:30 Labs: Laboratory Results - last 24 hr 11/17/18 11/17/18 11/17/18 05:26 10:41 16:15 POC Glucose (mg/dL) 135 H 282 H 216 H 11/17/18 21:51 POC Glucose (mg/dL) 245 H
--- NOTE | 2018-11-17 22:38 | CP.PCM.PN ---
Subjective - Date & Time of Evaluation Date of Evaluation: 11/16/18 Time of Evaluation: 19:25 Objective - Vital Signs/Intake and Output Vital Signs (last 24 hours): Temp Pulse Resp BP Pulse Ox 98.8 F 80 16 122/70 95 11/17/18 19:30 11/17/18 20:43 11/17/18 19:30 11/17/18 19:30 11/17/18 19:30 - Medications Medications: Current Medications Calcium/Vitamin D ([place]yster [place] Calcium/Vitamin D 500 Mg-200 Iu) 1 tab PO BID [facility] Last Admin: 11/17/18 16:51 Dose: 1 tab Donepezil HCl (Aricept) 5 mg PO HS [facility] Last Admin: 11/17/18 21:29 Dose: 5 mg Heparin Sodium (Porcine) (Heparin) 5,000 units SC Q8 [facility]; Protocol Last Admin: 11/17/18 16:51 Dose: 5,000 units Insulin Human Lispro (Humalog) 0 units SC ACHS [facility]; Protocol Last Admin: 11/17/18 16:52 Dose: 3 units Megestrol Acetate (Megace) 200 mg PO DAILY [facility] Last Admin: 11/17/18 09:02 Dose: 200 mg Memantine (Namenda) 10 mg PO Q12 [facility] Last Admin: 11/17/18 21:29 Dose: 10 mg Metformin HCl (Glucophage) 1,000 mg PO BID [facility] Last Admin: 11/17/18 16:52 Dose: 1,000 mg Sitagliptin Phosphate (Januvia) 50 mg PO BID [facility] Last Admin: 11/17/18 16:51 Dose: 50 mg Temazepam (Restoril) 15 mg PO HS PRN PRN Reason: Insomnia Tramadol HCl (Ultram) 50 mg PO Q6H PRN PRN Reason: Pain, severe (8-10) - Labs Labs: 11/16/18 04:30 11/16/18 04:30 PT 10.1 Seconds (9.8-13.1) 11/15/18 18:00 INR 0.9 11/15/18 18:00 APTT 29.0 Seconds (25.6-37.1) 11/15/18 18:00
--- NOTE | 2018-11-17 22:39 | CP.PCM.PN ---
Subjective - Date & Time of Evaluation Date of Evaluation: 11/17/18 Time of Evaluation: 18:40 Objective - Vital Signs/Intake and Output Vital Signs (last 24 hours): Temp Pulse Resp BP Pulse Ox 98.8 F 80 16 122/70 95 11/17/18 19:30 11/17/18 20:43 11/17/18 19:30 11/17/18 19:30 11/17/18 19:30 - Medications Medications: Current Medications Calcium/Vitamin D (Oyster Shell Calcium/Vitamin D 500 Mg-200 Iu) 1 tab PO BID [facility] Last Admin: 11/17/18 16:51 Dose: 1 tab Donepezil HCl (Aricept) 5 mg PO HS [facility] Last Admin: 11/17/18 21:29 Dose: 5 mg Heparin Sodium (Porcine) (Heparin) 5,000 units SC Q8 [facility]; Protocol Last Admin: 11/17/18 16:51 Dose: 5,000 units Insulin Human Lispro (Humalog) 0 units SC ACHS [facility]; Protocol Last Admin: 11/17/18 16:52 Dose: 3 units Megestrol Acetate (Megace) 200 mg PO DAILY [facility] Last Admin: 11/17/18 09:02 Dose: 200 mg Memantine (Namenda) 10 mg PO Q12 [facility] Last Admin: 11/17/18 21:29 Dose: 10 mg Metformin HCl (Glucophage) 1,000 mg PO BID [facility] Last Admin: 11/17/18 16:52 Dose: 1,000 mg Sitagliptin Phosphate (Januvia) 50 mg PO BID [facility] Last Admin: 11/17/18 16:51 Dose: 50 mg Temazepam (Restoril) 15 mg PO HS PRN PRN Reason: Insomnia Tramadol HCl (Ultram) 50 mg PO Q6H PRN PRN Reason: Pain, severe (8-10) - Labs Labs: 11/16/18 04:30 11/16/18 04:30 PT 10.1 Seconds (9.8-13.1) 11/15/18 18:00 INR 0.9 11/15/18 18:00 APTT 29.0 Seconds (25.6-37.1) 11/15/18 18:00
[2018-11-18 00:42] VITALS: RESP 18
[2018-11-18] MEDS: Insulin Lispro (humaLOG) 100 Units/ml Inj SC SCH ×2 (09:05→12:51)
[2018-11-18] MEDS: Calcium-Vit D 500 mg-200 Units Tab UD PO SCH (09:06)
[2018-11-18] MEDS: Megestrol Acetate 40 mg/ml Cup PO SCH (09:07)
[2018-11-18 12:53] VITALS: BP 123/68; PULSE 87; TEMP 98.8; O2SAT 95
--- NOTE | 2018-11-19 02:05 | CP.PCM.DIS ---
Provider - Provider Date of Admission: 11/15/18 20:17 Attending physician: Mirta Morel MD Consults: 11/16/18 02:09 Nursing Referral for Wound Care Routine Comment: Physician Instructions: Reason For Exam: low poornima scale Time Spent in preparation of Discharge (in minutes): 25 Diagnosis - Discharge Diagnosis (1) History of dementia Status: Chronic (2) Hypophosphatemia Status: Acute (3) Lactic acid acidosis Status: Acute (4) HTN (hypertension) Status: Chronic Hospital Course - Lab Results Lab Results: Micro Results 11/15/18 19:16 Blood-Venous Blood Culture - Preliminary NO GROWTH AFTER 3 DAYS 11/15/18 18:00 Blood-Venous Blood Culture - Preliminary NO GROWTH AFTER 3 DAYS Most Recent Lab Values WBC 9.1 K/uL (4.8-10.8) 11/16/18 04:30 RBC 3.80 Mil/uL (3.80-5.20) 11/16/18 04:30 Hgb 11.1 g/dL (12.0-16.0) L 11/16/18 04:30 Hct 33.2 % (34.0-47.0) L 11/16/18 04:30 MCV 87.2 fl (81.0-99.0) 11/16/18 04:30 MCH 29.1 pg (27.0-31.0) 11/16/18 04:30 MCHC 33.3 g/dL (33.0-37.0) 11/16/18 04:30 RDW 14.5 % (11.5-14.5) 11/16/18 04:30 Plt Count 273 K/uL (130-400) 11/16/18 04:30 MPV 9.2 fl (7.2-11.7) 11/15/18 18:00 Neut % (Auto) 60.3 % (50.0-75.0) 11/15/18 18:00 Lymph % (Auto) 29.9 % (20.0-40.0) 11/15/18 18:00 [place] % (Auto) 6.8 % (0.0-10.0) 11/15/18 18:00 Eos % (Auto) 2.3 % (0.0-4.0) 11/15/18 18:00 Baso % (Auto) 0.7 % (0.0-2.0) 11/15/18 18:00 Neut # (Auto) 5.6 K/uL (1.8-7.0) 11/15/18 18:00 Lymph # (Auto) 2.8 K/uL (1.0-4.3) 11/15/18 18:00 [place] # (Auto) 0.6 K/uL (0.0-0.8) 11/15/18 18:00 Eos # (Auto) 0.2 K/uL (0.0-0.7) 11/15/18 18:00 Baso # (Auto) 0.1 K/uL (0.0-0.2) 11/15/18 18:00 PT 10.1 Seconds (9.8-13.1) 11/15/18 18:00 INR 0.9 11/15/18 18:00 APTT 29.0 Seconds (25.6-37.1) 11/15/18 18:00 pO2 26 mm/Hg (30-55) L 11/15/18:31 VBG pH 7.38 (7.32-7.43) 11/15/18 19:31 VBG pCO2 44 mmHg (40-60) 11/15/18:31 VBG HCO3 23.9 mmol/L 11/15/18: VBG Total CO2 27.4 mmol/L (22-28) 11/15/18: VBG O2 Sat (Calc) 61.1 % (40-65) 11/15/18: VBG Base Excess 0.5 mmol/L (0.0-2.0) 11/15/18: VBG Potassium 4.9 mmol/L (3.6-5.2) 11/15/18: Sodium 138.0 mmol/L (132-148) 11/15/18: Chloride 102.0 mmol/L (98-107) 11/15/18: Glucose 363 mg/dL (65-105) H 11/15/18: Lactate 4.1 mmol/L (0.7-2.1) H* 11/15/18 19: FiO2 21.0 % 11/15/18: Crit Value Called To shira Ford md 11/15/18 19:31 Crit Value Called By Farnaz harvey 11/15/18 19:31 Crit Value Read Back Y 11/15/18 19:31 Blood Gas Notified Time 193911/15/18 19:31 Sodium 142 mmol/l (132-148) 11/16/18 04:30 Potassium 4.5 MMOL/L (3.6-5.0) 11/16/18 04:30 Chloride 107 mmol/L (98-107) 11/16/18 04:30 Carbon Dioxide 22 mmol/L (22-30) 11/16/18 04:30 Anion Gap 18 (10-20) 11/16/18 04:30 BUN 18 mg/dl (7-17) H 11/16/18 04:30 Creatinine 0.6 mg/dl (0.7-1.2) L 11/16/18 04:30 Est GFR ( Amer) > 60 11/16/18 04:30 Est GFR (Non-Af Amer) > 60 11/16/18 04:30 POC Glucose (mg/dL) 293 mg/dL (65-110) H 11/18/18 11:04 Random Glucose 184 mg/dL (65-105) H 11/16/18 04:30 Hemoglobin A1c 9.4 % (4.2-6.5) H 11/16/18 14:30 Lactic Acid 1.7 mmol/L (0.7-2.1) 11/16/18 05:30 Calcium 8.8 mg/dL (8.4-10.2) 11/16/18 04:30 Phosphorus 4.1 mg/dl (2.5-4.5) 11/16/18 04:30 Magnesium 1.7 MG/DL (1.6-2.3) 11/16/18 04:30 Total Bilirubin 0.2 mg/dl (0.2-1.3) 11/16/18 04:30 AST 21 U/L (14-36) 11/16/18 04:30 ALT 26 U/L (9-52) 11/16/18 04:30 Alkaline Phosphatase 68 U/L (38-126) 11/16/18 04:30 Troponin I < 0.0120 ng/mL (0.00-0.120) 11/16/18 08:30 Total Protein 6.1 G/DL (6.3-8.2) L 11/16/18 04:30 Albumin 3.3 g/dL (3.5-5.0) L D 11/16/18 04:30 Globulin 2.8 gm/dL (2.2-3.9) 11/16/18 04:30 Albumin/Globulin Ratio 1.2 (1.0-2.1) 11/16/18 04:30 Venous Blood Potassium 4.9 mmol/L (3.6-5.2) 11/15/18 19:31 Influenza Typ A,B (EIA) Negative for flu a/b (NEGATIVE) 11/15/18 18:00 Blood Type O POSITIVE 11/15/18 18:00 Blood Type Confirm O POSITIVE 11/16/18 04:30 Antibody Screen Negative 11/15/18 18:00 BBK History Checked No verified bt 11/15/18 18:00 Discharge Exam - Head Exam Head Exam: ATRAUMATIC, NORMOCEPHALIC Discharge Plan - Follow Up Plan Condition: GUARDED Disposition: DISCHARGED TO HOME CARE Instructions: Hyperglycemia, Adult (DC) Referrals: Mirta Morel MD [Staff Provider] -
== END 2018-11-18 15:32 | disposition home health service (06) | DRG 639 ==
LOC: H.ER 17:08 → OBSVTOIN 20:17 → H.ERHOLD 20:17 → H.TEL 23:09
PROVIDERS: ADMIT Internal Medicine; ATTEND Internal Medicine
DX: E11.65 Type 2 diabetes mellitus with hyperglycemia (principal); E78.00 Pure hypercholesterolemia, unspecified; E83.39 Other disorders of phosphorus metabolism; F03.90 Unspecified dementia, unspecified severity, without behavioral disturbance, psychotic disturbance, mood disturbance, and anxiety; I10 Essential (primary) hypertension; K29.70 Gastritis, unspecified, without bleeding; R53.1 Weakness